=== PATIENT | female | born 1985 | race African-American/Black ===

== ENCOUNTER 2021-09-06 09:53 | Emergency (ER) | payer OTHER, SELFPAY ==
--- NOTE | ~2021-09-06 | XR_ITS ---
EXAMINATION: XR CHEST CLINICAL INFORMATION: Epigastric pain COMPARISON: None TECHNIQUE: 2 views of the chest were obtained. FINDINGS: The lungs are clear. The vascularity is normal. There is no airspace consolidation, groundglass opacity, or effusion. The costophrenic sulci are clear. No pneumothorax or pneumomediastinum. No free air beneath the diaphragms. Bony structures are unremarkable. XR/XR chest 2V IMPRESSION: Unremarkable examination.
[2021-09-06 09:59] VITALS: BP 116/84; PULSE 94; RESP 19; TEMP 36.6; O2SAT 98; BMI 23.3
--- NOTE | 2021-09-06 10:24 | ECG_ITS ---
Test Reason : CHEST PAIN Blood Pressure : / mmHG Vent. Rate : 076 BPM Atrial Rate : 076 BPM P-R Int : 158 ms QRS Dur : 076 ms QT Int : 366 ms P-R-T Axes : -07 -01 007 degrees QTc Int : 411 ms Normal sinus rhythm Moderate voltage criteria for LVH, may be normal variant ( R in aVL , Sokolow-Omalley ) Borderline ECG No previous ECGs available Referred By: Generic ED Physician Electronically Signed By:GINA HAGEN MD
--- NOTE | 2021-09-06 11:18 | ED_ITS ---
HPI - General Adult General Chief complaint: General Medical Stated complaint: chest pain Time Seen by Provider: 09/06/21 11:18 Source: patient Mode of arrival: ambulatory Limitations: no limitations History of Present Illness HPI narrative: 35-year-old female is here today for complaining of epigastric pain that started 2 days ago. Patient reports that she does not remember associating factors when the pain started. Patient reports that the pain is worse at night. Pain is also worse when she moves. Patient denies any SOB, palpitations, syncope, presyncope. Pain does not radiate anywhere else. Patient reports that she has had history of acid reflux when she was . Patient reports that she has a history of anemia and is taking ferrous sulfate that constipated her. Patient reports she had a bowel movement this morning and was hard. Patient denies nausea, vomiting, diarrhea, abdominal pain or cramping. Onset (ago): day(s) Location: abdomen (Epigastric pain, worse with palpation and movement) Radiation: non-radiation Severity: mild Pain Consistency: intermittent Relieving factors: rest Exacerbating factors: movement and other (Worse at night) Treatments prior to arrival: none Related Data Previous Rx's Medication Instructions Recorded docusate sodium 100 mg capsule 100 mg PO DAILY #30 cap 09/06/21 famotidine 20 mg tablet 20 mg PO BEDTIME #20 tab 09/06/21 omeprazole 20 mg capsule,delayed 20 mg PO DAILY #20 cap 09/06/21 release Allergies Allergy/AdvReac Type Severity Reaction Status Date / Time No Known Allergies Allergy Verified 09/06/21 09:58 Review of Systems Review of Systems: Constitutional : No Weight loss, No Fever, No Chills, No Night Sweats, No Fatigue, No Malaise ENT/Mouth : No Hearing loss, No Ear Pain, No Nasal Congestion, No Sinus Pain, No Hoarseness, No sore throat, No Rhinorrhea, No Swallowing Difficulty Eyes: No Eye Pain, No Swelling, No Redness, No Foreign Body, No Discharge, No Vision Changes Cardiovascular : No Chest Pain, No SOB, No Dyspnea on Exertion, No Orthopnea, No Edema, No Palpitations Respiratory : No Cough, No Sputum, No Wheezing, No Smoke Exposure, No Dyspnea, epigastric pain worse with palpation Gastrointestinal : No Nausea, No Vomiting, No Diarrhea, No Constipation, epigastric, abdominal Pain, No Hematochezia, No Melena Genitourinary : no irregular bleeding, No Dysuria, No Urinary Frequency, No Hematuria, No Urinary Incontinence, No Urgency, No Flank Pain, No Urinary Flow Changes, No Hesitancy Musculoskeletal : No joint pain, No Myalgias, No Joint Swelling Skin : No Skin Lesions, No rash Neuro : No Weakness, No Numbness, No Paresthesias, No Loss of Consciousness, No Dizziness, No Headache Psych : No Anxiety/Panic, No Depression, No SI/HI/AH/VH, No Social Issues, Yes all other systems are reviewed and are negative [facility] Past Medical History Medical History (Updated 09/06/21 @ 13:12 by Mini Cortés, [facility]) Depression Social History Social History Advance Directives: No Advance Directives Information Provided: Yes Physical Exam Vital Signs: Vital Signs: Last Vital Signs Temp 98 F 09/06/21 09:59 Pulse 94 09/06/21 09:59 Resp 19 09/06/21 09:59 BP 116/84 09/06/21 09:59 Pulse Ox 98 09/06/21 09:59 Body Mass Index 23.3 Course Course Course Narrative: 35 years old female is here today for complaining of epigastric pain. Patient reports that her pain is worse at night and when she presses on the epigastric region. Patient reports that she has a history of anemia and is taking ferrous sulfate at home. Reports that she does have a mild constipation and has not take anything for it. Patient reports that she had a history of acid reflux when she was 3 years ago. Patient reports that she was on the medication then but does not remember that name of it. Patient denies chest pressure, palpitation, syncope, presyncope. Reports that she is l ittle bit of short of breath no history of anemia. Most likely costochondritis, however differential diagnosis are gastritis, NSTEMI, pancreatitis. Will order CBC, CMP, lipase, chest x-ray, troponin. Will give her GI cocktail, fluids. EKG done in triage and shows normal sinus with no ischemic changes Reevaluation(s) Reevaluation #1: No leukocytosis, mild anemia, patient has a history of anemia on iron supplements H&H 11.6 and 33.1. Electrolytes normal, normal liver function studies, lipase is normal, troponin is negative. Will give her dose of Protonix here. Patient will be sent home on PPI, she can take that in the morning and H2 jessica at night time. Will send her to follow-up with gastroenterology Medical Decision Making Lab Data Result diagrams: 09/06/21 11:48 09/06/21 11:48 Labs: Lab Results 09/06/21 09/06/21 09/06/21 Range/Units 11:48 11:48 11:48 WBC 10.5 (4.8-10.8) X10*3/uL RBC 3.94 L (4.20-5.50) X10*6/uL Hgb 11.6 L (12.0-16.0) g/dl Hct 33.1 L (37.0-47.0) % MCV 84.0 (80.0-98.0) fL MCH 29.4 (27.0-33.0) pg MCHC 35.0 (31.0-35.0) g/dl RDW 18.0 H (11.0-16.0) % Plt Count 233 (160-400) X10*3/uL MPV 9.1 L (9.4-12.3) fL Immature Gran % (Auto) 0.4 (0.0-0.4) % Neut % (Auto) 75.6 H (45-73) % Lymph % (Auto) 15.4 L (20-40) % [place] % (Auto) 7.0 (2-11) % Eos % (Auto) 1.4 (0-4) % Baso % (Auto) 0.2 (0-2) % Lymph # (Auto) 1.6 (1.2-4.9) X10*3/uL [place] # (Auto) 0.7 (0.1-1.2) X10*3/uL Eos # (Auto) 0.2 (0.0-0.4) X10*3/uL Baso # (Auto) 0.0 (0.0-0.2) X10*3/uL Abs Immat Gran (auto) 0.04 H (0.00-0.03) X10*3/uL Absolute Neuts (auto) 7.9 (2.0-8.3) x10*3/uL Absolute Nucleated RBC 0.000 (0.0-0.012) X10*3/uL Nucleated RBC % (auto) 0.0 (0.0-0.2) /100WBC Sodium 137 (135-145) mmol/L Potassium 3.8 (3.3-5.1) mmol/L Chloride 104 (96-108) mmol/L Carbon Dioxide 27 (22-29) mmol/L Anion Gap 10 L (12-20) BUN 11 (9-16) mg/dL Creatinine 0.72 (0.5-1.4) mg/dL Estim Creat Clear Calc 101.1 Estimated GFR > 60 Random Glucose 93 (60-115) mg/dL Calcium 8.8 (8.4-10.2) mg/dL Total Bilirubin 0.2 (0.0-1.0) mg/dL AST 22 (5-31) U/L ALT 14 (0-31) U/L Alkaline Phosphatase 73 (39-117) U/L Troponin I High Sens < 3.5 (<3.5-17.0) ng/L Total Protein 6.2 L (6.5-8.0) g/dL Albumin 3.6 (3.5-5.0) g/dL Lipase 43 (8-78) U/L Imaging Data Chest x-ray: Attestation: I personally reviewed and interpreted this imaging study as follows: Radiologist's impression: FINDINGS: The lungs are clear. The vascularity is normal. There is no airspace consolidation, groundglass opacity, or effusion. The costophrenic sulci are clear. No pneumothorax or pneumomediastinum. No free air beneath the diaphragms. Bony structures are unremarkable. ECG Data Interpretation: Atrial rate 76, ventricular rate 76, [place] interval 0.15, QRS 0.07, QTC 411, normal sinus rhythm Discharge Plan Discharge Clinical Impression: Atypical chest pain, Costalchondritis, Epigastric abdominal pain Patient Disposition: Home, Self-Care Instructions: Gastroesophageal Reflux Disease (ED), Epigastric Pain (ED) Additional Instructions: You were seen here today for epigastric pain. Lab work and chest x-ray were negative for any acute findings. You were given a dose of medication that helps with acid reflux. You will be given extra script for omeprazole and famotidine. Please take omeprazo hour before breakfast. Take famotidine before going to bed. You will be also given a script for docusate sodium to help with her bowels. Please follow-up with your primary care provider and with the Gastroenterology Prescriptions: New omeprazole 20 mg capsule,delayed release(DR/EC) 20 mg PO DAILY Qty: 20 RF: 0 famotidine 20 mg tablet 20 mg PO BEDTIME Qty: 20 RF: 0 docusate sodium 100 mg capsule 100 mg PO DAILY Qty: 30 RF: 0 Referrals: Winifred Torre MD [Physician] - 1 week Stand Alone Forms: Work/School Release Discharge Date/Time: 09/06/21 13:21
[2021-09-06] MEDS: 0.9 % Sodium Chloride 1,000 ML 999 ML IV (11:49)
[2021-09-06] MEDS: Lidocaine HCl Viscous 2 % 15 ML SOLUTION MUCOUS MEM (11:51)
[2021-09-06] MEDS: Magnesium Hydrox/Alum Hydrox 30 ML ORAL.SUSP 15 ML PO (11:52)
[2021-09-06 11:55] LABS: MANUAL DIFF FLAG NO
[2021-09-06 11:58] LABS: Basophils Percent Auto 0.2 % (0-2); Eosinophils Absolute Auto 0.2 X10*3/uL (0.0-0.4); Eosinophils Percent Auto 1.4 % (0-4); Hematocrit 33.1 % (37.0-47.0); Hemoglobin 11.6 g/dl (12.0-16.0); Imm Gran Abs Auto 0.04 X10*3/uL (0.00-0.03); Imm Gran Pct Auto 0.4 % (0.0-0.4); Lymphocytes Absolute Auto 1.6 X10*3/uL (1.2-4.9); Lymphocytes Percent Auto 15.4 % (20-40); Mean Corpuscular Hemoglobin 29.4 pg (27.0-33.0); Mean Platelet Volume 9.1 fL (9.4-12.3); Monocytes Absolute Auto 0.7 X10*3/uL (0.1-1.2); Neutrophils Absolute Auto 7.9 x10*3/uL (2.0-8.3); Neutrophils Percent Auto 75.6 % (45-73); Platelet Count 233 X10*3/uL (160-400); Red Blood Count 3.94 X10*6/uL (4.20-5.50); White Blood Count 10.5 X10*3/uL (4.8-10.8)
[2021-09-06 12:15] LABS: Alanine Aminotransferase 14 U/L (0-31); Albumin Level 3.6 g/dL (3.5-5.0); Alkaline Phosphatase 73 U/L (39-117); Anion Gap 10 (12-20); Aspartate Amino Transferase 22 U/L (5-31); Bilirubin Total 0.2 mg/dL (0.0-1.0); Blood Urea Nitrogen 11 mg/dL (9-16); Calcium 8.8 mg/dL (8.4-10.2); Carbon Dioxide 27 mmol/L (22-29); Chloride 104 mmol/L (96-108); Creatinine Clr Calc Pharmacy 101.1; Estimated Glomerular Filt Rate > 60; Glucose Random 93 mg/dL (60-115); Lipase 43 U/L (8-78); Potassium 3.8 mmol/L (3.3-5.1); Sodium 137 mmol/L (135-145); Total Protein 6.2 g/dL (6.5-8.0)
[2021-09-06 12:19] LABS: Troponin-I High Sensitivity < 3.5 ng/L (<3.5-17.0)
[2021-09-06] MEDS: Pantoprazole Sodium 40 MG/10 ML VIAL IVPUSH (12:36)
== END 2021-09-06 13:21 | disposition home or self-care (01) ==
PROVIDERS: Nurse Practitioner Family; Emergency Provider Emergency Medicine
DX: R07.89 Other chest pain (principal); M94.0 Chondrocostal junction syndrome [Tietze]; R10.13 Epigastric pain
CPT/HCPCS: 36415; 71046; 80053; 83690; 84484; 85025; 93005; 96361; 96374; 99283; 99284

== ENCOUNTER 2021-11-01 18:11 | Emergency (ER) | payer OTHER, SELFPAY ==
[2021-11-01 19:09] VITALS: BP 113/78; PULSE 94; RESP 16; TEMP 37.2; O2SAT 99; BMI 24.7
--- NOTE | 2021-11-01 19:46 | ED_ITS ---
HPI - Medical Clearance General Chief complaint: Medical Clearance Stated complaint: med clearance Time Seen by Provider: 11/01/21 19:46 Source: patient Mode of arrival: ambulatory Limitations: no limitations History of Present Illness HPI Narrative: 36-year-old female presenting to the emergency department requesting medical clearance. Patient tells me that she is currently in a recovery program and today she had a relapse on marijuana and alcohol. She told me that she has not drink or use marijuana 90 days, today she smoked a little bit and had a few drinks. She tells me that she is afraid to lose her spot in the program so she admitted this to the program staff. They told her that she had to get medically cleared and have a drug of abuse screening test done. At this time patient is, cooperative, no other concerns. Denies chest pain, shortness of breath, headache, vision changes, nausea, vomiting, abdominal pain. Denies visual, auditory and tactile hallucinations. Denies trauma. complaint: medical clearance requested Onset (ago): day(s) (1) Place: other (Recovery program) Alleged Intoxication: Yes Compliant with Home Medications: No Traumatic Symptoms: denies traumatic injury Associated Symptoms: denies other symptoms Treatments Prior to Arrival: none Related Information Previous Rx's Medication Instructions Recorded docusate sodium 100 mg capsule 100 mg PO DAILY #30 cap 09/06/21 famotidine 20 mg tablet 20 mg PO BEDTIME #20 tab 09/06/21 omeprazole 20 mg capsule,delayed 20 mg PO DAILY #20 cap 09/06/21 release Allergies Allergy/AdvReac Type Severity Reaction Status Date / Time No Known Allergies Allergy Verified 09/06/21 09:58 Review of Systems Review of Systems: Constitutional : No Fever, No Chills ENT/Mouth : No sore throat, No Rhinorrhea Eyes: No Eye Pain, No Swelling, No Redness Cardiovascular : No Chest Pain, No SOB Respiratory : No Cough, No Sputum Gastrointestinal : No Nausea, No Vomiting, No Diarrhea, No abdominal Pain Genitourinary : No Dysuria, No Hematuria Musculoskeletal : No joint pain, No Myalgias, No Joint Swelling Skin : No Skin Lesions, No rash Neuro : No Weakness, No Numbness Psych : No Anxiety, No Depression, No SI/HI/AH/VH All other systems reviewed and are negative Yes all other systems are reviewed and are negative [facility] Past Medical History Attestation statement: The following information was validated with the patient. Source: old records reviewed and nursing notes reviewed Medical History Depression Social History Social History Advance Directives: No Patient : No Physical Exam Vital Signs: Vital Signs: Last Vital Signs Temp 99.0 F 11/01/21 19:09 Pulse 94 11/01/21 19:09 Resp 16 11/01/21 19:09 BP 113/78 11/01/21 19:09 Pulse Ox 99 11/01/21 19:09 BMI result Body Mass Index 24.7 Vital signs stable. Appearance: Alert.? Oriented X3.? No acute distress.? Head: Normocephalic, atraumatic, no step-offs or deformities Eyes: Pupils equal, round and reactive to light.? ENT: Pharynx normal.? Neck: Normal inspection.? Neck supple.? CVS: Normal heart rate and rhythm.? Pulses normal.? Respiratory: No respiratory distress.? Breath sounds normal.? Abdomen: Soft and nontender.? Skin: Skin warm and dry.? Normal skin color.? Normal skin turgor.? Extremities: No lower extremity edema.? No calf ttp. 5/5 strength to bilateral upper and lower extremities Back: No midline tenderness, no C-spine tenderness, full range of motion, no CVA tenderness bilaterally Neuro: Oriented X 3.? No motor deficit.? No sensory deficit. Cranial nerves 2- 12 intact. Course Reevaluation(s) Reevaluation #1: Urine positive for PCP and marijuana. At this time patient will be discharged home. She has no concerns. Time: 20:44 [facility] - Medical Clearance [facility] Narrative Medical decision making narrative: 1951 36 yo F presents to Ed requesting drug screen to return to recovery program. Patient relapsed on marijuana and alcohol today. Physical examination benign Plan at this time is to obtain a CEDENO. Medical Records Attestation: I reviewed the patient's medical records. Lab Data Attestation: I reviewed the patient's lab results. Labs: Lab Results 11/01/21 Range/Units 20:08 Urine Opiates Screen Not Detected (Not Detect) Urine Fentanyl Screen Not Detected (Not Detect) Ur Barbiturates Screen Not Detected (Not Detect) Ur Phencyclidine Scrn POSITIVE H (Not Detect) Ur Amphetamines Screen Not Detected (Not Detect) U Benzodiazepines Scrn Not Detected (Not Detect) Urine Cocaine Screen Not Detected (Not Detect) U Marijuana (THC) Screen POSITIVE H (Not Detect) Critical Care Time Critical Care Time Critical Care Time: No Discharge Plan Discharge Clinical Impression: Encounter for drug screening, PCP (phencyclidine) abuse Patient Disposition: Home, Self-Care Instructions: Abuse of Alcohol (ED) Additional Instructions: Take your medications as prescribed. If you were prescribed antibiotics today, it is important that you take your medication to their entirety, do not skip any doses, do not finish them early. Follow-up with your primary care provider this week. Return to the emergency department with new or worsening symptoms. In case of emergency call 911 At this time I feel as though your safe to return back to our program. Urine + for PCP and marijuana Prescriptions: No Action omeprazole 20 mg capsule,delayed release(DR/EC) 20 mg PO DAILY Qty: 20 RF: 0 famotidine 20 mg tablet 20 mg PO BEDTIME Qty: 20 RF: 0 docusate sodium 100 mg capsule 100 mg PO DAILY Qty: 30 RF: 0 Referrals: Physician,Unknown J [Primary Care Provider] - 2 days Stand Alone Forms: Work/School Release
[2021-11-01 20:34] LABS: Amphetamine Screen Urine Not Detected (Not Detect); Barbiturates, Urine Not Detected (Not Detect); Benzodiazepines Screen Urine Not Detected (Not Detect); Cannabinoid Screen Urine POSITIVE (Not Detect); Cocaine Screen Urine Not Detected (Not Detect); Fentanyl, urine Not Detected (Not Detect); Opiate Screen Urine Not Detected (Not Detect); Phencyclidine Screen Urine POSITIVE (Not Detect)
== END 2021-11-01 21:25 | disposition home or self-care (01) ==
PROVIDERS: Physician Assistant; Emergency Provider Internal Medicine
DX: Z02.83 Encounter for blood-alcohol and blood-drug test (principal); F16.10 Hallucinogen abuse, uncomplicated; F12.90 Cannabis use, unspecified, uncomplicated
CPT/HCPCS: 80307; 99284